=== PATIENT | female | born 2005 | race Caucasian/White ===

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

== ENCOUNTER 2024-07-11 12:53 | Outpatient (CLI) | payer BC ==
[2024-07-11] MEDS ORDERED: Iopamidol 300 61% 100 ML VIAL FS ONE (15:17)
== END 2024-07-11 12:54 | disposition home or self-care (01) ==
LOC: CSHCT 12:53
PROVIDERS: ATTEND Internal Medicine
DX: K58.2 Mixed irritable bowel syndrome (principal)
CPT/HCPCS: 74177; Q9967